=== PATIENT | male | born 1960 | race African-American/Black ===

== ENCOUNTER 2023-08-15 09:32 | Inpatient (IN) | payer OTHER, SELFPAY ==
[2023-08-15] VITALS (26 sets, daily range): BP systolic 145–178; BP diastolic 78–106; PULSE 77–100; RESP 16–24; TEMP 36.3–36.6; O2SAT 89–100
--- NOTE | ~2023-08-15 | XR_ITS ---
EXAMINATION: XR chest 1V portable DATE: 08/15/2023 11:45 INDICATION: Shortness of breath. TECHNIQUE: A single frontal view of the chest was obtained. COMPARISON: None. FINDINGS: There is no pneumonia, pleural effusion, or pneumothorax. The heart size is normal. IMPRESSION: 1. No acute cardiopulmonary disease. Reviewed, dictated and finalized at location A. [facility]
--- NOTE | 2023-08-15 10:09 | ECG_ITS ---
Measurements Intervals Omer Rate: 86 P: 64 ND: 168 QRS: 59 QRSD: 80 T: 68 QT: 384 QTc: 461 Interpretive Statements SINUS RHYTHM ST DEVIATION AND MODERATE T-WAVE ABNORMALITY, CONSIDER LATERAL ISCHEMIA [-0.1+ mV T- WAVE IN I/aVL/V5/V6] NO PREVIOUS ECG AVAILABLE FOR COMPARISON Electronically Signed On 08-15-2023 12:44:15 BREAKER UP MACHINE OPERATOR by Yahaira Shelley M.D.
--- NOTE | 2023-08-15 10:16 | ED.SOB ---
HPI - SOB/Dyspnea General Chief Complaint: Shortness of Breath/Dyspnea <Briana Gilliland PA-C - Last Filed: 08/15/23 14:33> Stated Complaint: dyspnea, wheezing <Briana Gilliland PA-C - Last Filed: 08/15/23 14:33> Time Seen by Provider: 08/15/23 10:08 <BRENNON Patel Last Filed: 08/15/23 14:33> Source: patient <BRENNON Patel Last Filed: 08/15/23 14:33> Mode of arrival: EMS <BRENNON Patel Last Filed: 08/15/23 14:33> Limitations: no limitations <Briana Gilliland PA-C - Last Filed: 08/15/23 14:33> History of Present Illness HPI Narrative: Patient is a 63 y/o male who presents to the ED via EMS with report of SOB. Patient reports he began feeling increasingly short of breath with wheezing last night. Has history of asthma. He was using his albuterol inhaler last night with mild improvement. He went to work this morning and states the shortness breath became worse. He tried using his inhaler again without relief. EMS was then called. Patient was noted to be hypoxic at 87% on room air upon EMS his arrival. He was placed on 2 L nasal cannula, given Solu-Medrol and breathing treatment EN route to the ED. Patient feeling slightly better upon my evaluation. He denies previous oxygen requirement. He denies chest pain, but does admit to chest tightness last night. Denies recent cough or cold symptoms, fevers, nausea, vomiting. <Briana Gilliland PA-C - Last Filed: 08/15/23 14:33> Related Data Home Medications: Home Medications Medication Instructions Recorded Confirmed albuterol sulfate 90 mcg/actuation 2 puff inhalation QID PRN sob 08/15/23 08/15/23 aerosol inhaler amlodipine 10 mg tablet 10 mg PO DAILY 08/15/23 08/15/23 baclofen 10 mg tablet 10 mg PO DAILY 08/15/23 08/15/23 ibuprofen 800 mg tablet 800 mg PO DAILY 08/15/23 08/15/23 <Briana Gilliland PA-C - Last Filed: 08/15/23 14:33> Allergies/Adverse Reactions: Allergies Allergy/AdvReac Type Severity Reaction Status Date / Time No Known Allergies Allergy Verified 08/15/23 10:29 <Briana Gilliland PA-C - Last Filed: 08/15/23 14:33> Review of Systems Review of Systems: CONSTITUTIONAL: Denies fever, chills, or sweats. ENT: Denies rhinorrhea, congestion, sore throat. CARDIOVASCULAR: See HPI. RESPIRATORY: See HPI. GASTROINTESTINAL: Denies abdominal pain, nausea, vomiting. NEUROLOGIC: Denies headache, dizziness, numbness, or weakness. <Briana Gilliland PA-C - Last Filed: 08/15/23 14:33> All systems reviewed & are unremarkable except as noted in HPI and below <Briana Gilliland PA-C - Last Filed: 08/15/23 14:33> [facility] Past Medical History Medical History: Medical History (Updated 08/15/23 @ 15:43 by Maegan Peterson PA-C) Asthma Hypertension Osteoarthritis <Briana Gilliland PA-C - Last Filed: 08/15/23 14:33> Social History Social History: Social History (Updated 08/15/23 @ 15:42 by Maegan Peterson PA-C) Social History: Surrogate medical decision maker: Cammie Mooney, sibling. Code status: Full code. Smoking packs per day: 1 Smoking cigarettes per day: 20.0 Years smoked: 30 Smoking pack-years: 30.00 Smoking status: Former smoker Alcohol intake: current Drinks per week: 2 Substance use: never Substance use type: does not use Do You Feel Safe in your Home?: Yes Lack of Transportation: No Lack of Food: Never True Current Housing: I Do Not Have Housing Concerned About Future Housing: No Difficulty Paying Gas/Electric Bills: No Difficulty Paying for Meds: YES Currently Unemployed: No Education: High School Diploma/GED Difficulty w/ Childcare or Family Care: No Additional occupation/education comments: [employer]. Spiritual care concerns: No <Briana Gilliland PA-C - Last Filed: 08/15/23 14:33> Exam Narrative: GENERAL: Well appearing,
[2023-08-15 10:31] LABS: Basophils Percent Auto 0.3 % (0.2-1.2); Eosinophils Absolute Auto 0.4 K/mm3 (0-0.3); Eosinophils Percent Auto 4.5 % (0-4.4); Hematocrit 36.9 % (42.0-52.0); Hemoglobin 11.6 g/dL (14.0-18.0); Immature Granulocyte Absolute 0.02 K/mm3 (0.00-0.031); Immature Granulocyte Percent A 0.2 % (0-0.5); Lymphocytes Absolute Auto 0.65 K/mm3 (0.9-3.2); Lymphocytes Percent Auto 7.6 % (18.3-44.2); Mean Corpuscular HGB Conc 31.4 g/dl (32-36); Mean Corpuscular Hemoglobin 26.1 pg (26-34); Mean Corpuscular Volume 82.9 fl (80-100); Mean Platelet Volume 8.5 fl (7.4-10.4); Monocytes Absolute Auto 0.4 K/mm3 (0.1-0.6); Monocytes Percent Auto 5.1 % (2.6-8.5); Neutrophils Absolute Auto 7.1 K/mm3 (1.3-6.7); Neutrophils Percent Auto 82.3 % (45.5-73.1); Platelet Count Result 279 k/mm3 (150-375); Red Blood Count 4.45 M/mm3 (4.6-6.20); White Blood Count 8.6 K/mm3 (4.5-10.0)
[2023-08-15] MEDS: IPRATROPIUM BR 0.02% INH SOLN 0.5 MG/2.5 ML VIAL 1.5 MG INHALATION (10:31)
[2023-08-15] MEDS: LEVALBUTEROL NEB 1.25 MG/3 ML 2.5 MG INHALATION (10:32)
[2023-08-15 10:37] LABS: Alanine Aminotransferase 16 U/L (6-50); Albumin Level 4.6 g/dL (3.5-5.1); Alkaline Phosphatase 107 U/L (38-126); Anion Gap 10 mmol/L (8-16); Aspartate Amino Transferase 25 U/L (17-59); Bilirubin,Total 0.7 mg/dL (0.2-1.3); Blood Urea Nitrogen 13 mg/dL (9-20); Calcium 9.9 mg/dL (8.4-10.2); Carbon Dioxide 24 mmol/L (22-30); Chloride 105 mmol/L (98-107); Estimated CRCL calculation 68 ml/min; Estimated Glomerular Filt Rate > 60; Glucose 135 mg/dL (65-110); Sodium 139 mmol/L (137-145)
[2023-08-15 10:48] LABS: NT Pro B Type Natriuretic Pept 217 pg/mL (19.9-100); Prothrombin Time 13.8 Seconds (11.1-14.7); Troponin I < 0.012 ng/mL (0.000-0.034)
[2023-08-15 10:49] LABS: Partial Thromboplastin Time 32.7 SECONDS (22.3-36.8)
[2023-08-15] MEDS: POTASSIUM CHLORIDE 20 MEQ ER TABLET 40 MEQ PO (10:54)
[2023-08-15] MEDS: KCL 20 MEQ/SW 100 ML 100 ML 50 MEQ IVPB (10:54)
[2023-08-15 10:55] LABS: D Dimer 0.54 ug/mL (<0.48)
[2023-08-15 11:04] LABS: Influenza A QL RT-PCR Negative (Negative); Influenza B QL RT-PCR Negative (Negative); RSV RNA, RT-PCR Negative (Negative); SARS-CoV-2 RNA PCR Negative (Negative)
[2023-08-15] MEDS: SODIUM CHLORIDE 0.9% IV 250 ML 50 ML (12:27)
[2023-08-15] MEDS: LEVALBUTEROL NEB 1.25 MG/3 ML 0.63 MG INHALATION ×2 (14:55→20:57)
[2023-08-15] MEDS: IPRATROPIUM BR 0.02% INH SOLN 0.5 MG/2.5 ML VIAL INHALATION ×2 (14:55→20:57)
--- NOTE | 2023-08-15 15:37 | PM.IMHP ---
H&P: HPI History of Present Illness Date/Time: 08/15/23 15:00 Chief Complaint: Shortness of breath. Narrative: This is a 63-year-old male with asthma, hypertension, and arthritis who presented to the emergency department via EMS for evaluation of shortness of breath. The patient provides the following history. He began to feel increasingly short of breath with wheezing sometime last night and he used his albuterol inhaler with mild improvement. This morning he went to work where he works at the [employer] and reports that there is always dirt and dust flying but he typically wears a mask. While at work became increasingly wheezy and short of breath and felt as though he could not breathe in or out very well. He has a bit of a cough which is rarely productive of clear/white phlegm. Albuterol inhaler provided no relief this time an EMS was summoned. On their arrival his SpO2 was 87% on room air; he was placed on 2 L nasal cannula and received IV methylprednisolone and a nebulizer treatment en route. At the time my evaluation he is feeling only a little bit better and is due to have a continuous nebulizer treatment. He denies fever, chills, sweats, headache, neck ache, sinus congestion, sore throat, chest pain, pleuritic pain, palpitations, lower extremity edema, and calf pain. Several coworkers have had cold or flu symptoms. In the ED: He was afebrile on arrival with stable vital signs. He continues to require 2 L nasal cannula to maintain his SpO2 in the mid upper 90s. He tested negative for influenza, RSV, and COVID. Chest x-ray showed no acute cardiopulmonary disease. Labs were significant for a WBC count of 8.6, hemoglobin 11.6, D-dimer 0.54 (normal when adjusted for age), potassium 3.0, glucose 135, proBNP 217, troponin less than 0.012. He received another nebulizer treatment in the ED and 40 mEq p.o. potassium chloride and he is being admitted for further treatment of asthma exacerbation. Review of Systems Review of Systems: Twelve systems were reviewed and are negative except for as per HPI. [facility] Past Medical History Medical History (Updated 08/15/23 @ 21:58 by Maegan Peterson PA-C) Asthma Hypertension Osteoarthritis Prostate cancer Status post radiation. Surgical History Surgical History (Updated 08/15/23 @ 21:58 by Maegan Peterson PA-C) No history of previous surgery Family History Family History (Updated 08/15/23 @ 21:58 by Maegan Peterson PA-C) Other Family history non-contributory Social History Social History (Updated 08/15/23 @ 21:58 by Maegan Peterson PA-C) Social History: Surrogate medical decision maker: Sukumar Mooney Jr., son. Code status: Full code. Smoking packs per day: 1 Smoking cigarettes per day: 20.0 Years smoked: 30 Smoking pack-years: 30.00 Smoking status: Former smoker Alcohol intake: current Drinks per week: 2 Substance use: never Substance use type: does not use Do You Feel Safe in your Home?: Yes Lack of Transportation: No Lack of Food: Never True Current Housing: I Do Not Have Housing Concerned About Future Housing: No Difficulty Paying Gas/Electric Bills: No Difficulty Paying for Meds: YES Currently Unemployed: No Education: High School Diploma/GED Difficulty w/ Childcare or Family Care: No Additional occupation/education comments: [employer]. Spiritual care concerns: No Meds Home Medications and Allergies Home Medications Medication Instructions Recorded Confirmed Type albuterol sulfate 90 mcg/actuation 2 puff inhalation QID PRN sob 08/15/23 08/15/23 History aerosol inhaler amlodipine 10 mg tablet 10 mg PO DAILY 08/15/23 08/15/23 History baclofen 10 mg tablet 10 mg PO DAILY 08/15/23 08/15/23 History ibuprofen 800 mg tablet 800 mg PO DAILY 08/15/23 08/15/23 History Allergies Allergy/AdvReac Type Severity Reaction Status Date / Time No Known Allergies Allergy Verified 08/15/23 10:29 Vit
--- NOTE | 2023-08-15 16:12 | ADMGEN ---
This patient, Sukumar Mooney, was admitted to 3 [facility] Surg Room 307-01. Patient/family oriented to hospital policies and general routines including ID bracelet, bed and alarms, visiting hours, pain management, procedures, bathroom and other care routines, personal items, smoking policy, room service/diet, and visiting hours. Information on how to activate the Rapid Response Team has been discussed. Patient/Family are encouraged to report perceived risks to care and to ask questions if they do not understand what they are told or what they should do.
[2023-08-15] MEDS: IPRATROPIUM 0.5 MG/ALBUTEROL SULFATE 2.5 MG AMPUL.NEB 3 ML INHALATION ×3 (18:37→19:29)
[2023-08-15] MEDS: methylPREDNISolone SOD SUCC 125 MG VIAL 60 MG IV PUSH (19:48)
[2023-08-15] MEDS: MAGNESIUM SULF 2 GM/WATER 50ML 2 GM/50 ML BAG IVPB (19:48)
[2023-08-15 20:10] LABS: Potassium 3.4 mmol/L (3.4-5.0)
[2023-08-15 22:18] LABS: Alveolar/Arterial O2 Gradient 88.1 mmHg; Carboxyhemoglobin 0.3 % THb (0-2.0); Fractional Inspired Oxygen 28 %; HCO3 ABG 21.1 mEq/l (22.0-26.0); Methemoglobin ABG 0.3 %THb (0-1.5); Oxygen Content ABG 15.7 %vol (16.0-22.0); Oxygen Saturation ABG 94.5 % (95.0-100.0); Oxyhemoglobin 92.9 % THb (90.0-100.0); PCO2 ABG 34.4 mmHg (35.0-45.0); PO2 FiO2 Ratio Arterial Blood 2.54 %; Reduced Hemoglobin 6.5 %THb (0-5.0); pH ABG 7.405 (7.350-7.450)
[2023-08-15 22:19] LABS: Device NASAL CANNULA; Modified Allen's Test Pass; Site Drawn LEFT RADIAL
[2023-08-16] VITALS (20 sets, daily range): BP systolic 159–165; BP diastolic 80–90; PULSE 74–94; RESP 13–22; TEMP 36.2–36.4; O2SAT 92–100
[2023-08-16] MEDS: IPRATROPIUM BR 0.02% INH SOLN 0.5 MG/2.5 ML VIAL INHALATION ×6 (00:11→21:29)
[2023-08-16] MEDS: LEVALBUTEROL NEB 1.25 MG/3 ML 0.63 MG INHALATION ×6 (00:12→21:29)
[2023-08-16] MEDS: methylPREDNISolone SOD SUCC 125 MG VIAL 60 MG IV PUSH ×4 (00:25→17:44)
[2023-08-16] MEDS: AZITHROMYCIN 250 MG TABLET 500 MG PO (00:25)
[2023-08-16 07:10] LABS: Anion Gap 9 mmol/L (8-16); Blood Urea Nitrogen 19 mg/dL (9-20); Calcium 9.4 mg/dL (8.4-10.2); Carbon Dioxide 22 mmol/L (22-30); Chloride 107 mmol/L (98-107); Estimated CRCL calculation 76 ml/min; Estimated Glomerular Filt Rate > 60; Glucose 155 mg/dL (65-110); Magnesium 2.7 mg/dL (1.6-2.3); Potassium 3.5 mmol/L (3.4-5.0); Sodium 138 mmol/L (137-145)
[2023-08-16] MEDS: IBUPROFEN 400 MG TABLET 800 MG PO (08:22)
[2023-08-16] MEDS: amLODIPine BESYLATE 5 MG TABLET 10 MG PO (08:22)
[2023-08-16] MEDS: BACLOFEN 10 MG TABLET PO (08:22)
[2023-08-16] MEDS: guaiFENesin 12 HR 600 MG TABCR PO ×2 (08:22→20:47)
[2023-08-16] MEDS: ENOXAPARIN 40 MG/0.4 ML SYRINGE SUB-Q (08:22)
[2023-08-16] MEDS: AZITHROMYCIN 250 MG TABLET PO (08:23)
--- NOTE | 2023-08-16 14:33 | PM.IMPN ---
Progress Note: A&P Assessment and Plan (1) Asthma exacerbation: Qualifiers: Asthma persistence: unspecified Asthma severity: unspecified severity Qualified Code(s): J45.901 - Unspecified asthma with (acute) exacerbation Code(s): J45.901 - Unspecified asthma with (acute) exacerbation Status: Acute Assessment and Plan: Preliminary workup is consistent with asthma exacerbation. D-dimer slightly elevated but is within normal limits with age adjustment and pulmonary embolism just seems unlikely by his history. He has been started on scheduled bronchodilators and IV steroids. Pneumonia seems unlikely however with productive cough, increased shortness of breath, and wheezing he has been started on azithromycin. Wean oxygen as tolerated. (2) Hypoxia: Code(s): R09.02 - Hypoxemia Status: Acute Assessment and Plan: Patient requiring 3 L nasal cannula at this time. Continue bronchodilators and IV steroids. Wean oxygen to maintain O2 saturation greater than 90%. (3) Hypokalemia: Code(s): E87.6 - Hypokalemia Status: Acute Assessment and Plan: Patient with potassium of 3 on presentation. Potassium replenish. Resolved (4) Hypertension: Code(s): I10 - Essential (primary) hypertension Status: Acute Assessment and Plan: continue medications. Subjective Date/time seen: 08/16/23 14:33 Interval history: patient continues to have shortness of breath with activity and at rest. He is able to talk in complete sentences. He states that he was using his albuterol inhaler more frequently prior to presentation. He does work in a reg environment in due to weather changes outside it likely cause patients asthma exacerbation. Exam Narrative: GENERAL: Comfortable, no acute distress HENMT: moist mucous membranes EYES: EOM intact b/l NECK: no lymphadenopathy RESPIRATORY: diffuse wheezing and bibasilar crackles CARDIO: RRR GI: soft, nontender, bowel sounds present SKIN: no rashes EXTREMITIES: no edema, redness or tenderness Objective Data Vital Signs Vital Signs: Vital Signs - 24 hr 08/15/23 14:56 08/15/23 14:57 08/15/23 15:08 Temperature Pulse Rate 83 80 Respiratory Rate 20 20 Blood Pressure Pulse Oximetry 95 Oxygen Delivery Nasal Cannula Oxygen Flow Rate 2 08/15/23 15:29 08/15/23 16:32 08/15/23 18:38 Temperature 97.4 F L Pulse Rate 83 100 Respiratory Rate 22 H 24 H 24 H Blood Pressure 159/86 H Pulse Oximetry 97 97 Oxygen Delivery Nasal Cannula Oxygen Flow Rate 2 08/15/23 18:50 08/15/23 19:05 08/15/23 19:15 Temperature Pulse Rate 92 91 94 Respiratory Rate 20 24 H 24 H Blood Pressure Pulse Oximetry Oxygen Delivery Oxygen Flow Rate 08/15/23 19:29 08/15/23 19:31 08/15/23 19:44 Temperature Pulse Rate 95 89 Respiratory Rate 23 H 23 H Blood Pressure Pulse Oximetry 94 Oxygen Delivery Nasal Cannula Oxygen Flow Rate 2 08/15/23 21:12 08/15/23 22:26 08/15/23 20:00 Temperature 97.9 F Pulse Rate 91 Respiratory Rate 19 Blood Pressure 156/78 H Pulse Oximetry 100 97 97 Oxygen Delivery Nasal Cannula Nasal Cannula Oxygen Flow Rate 4 4 08/16/23 00:13 08/16/23 00:30 08/16/23 04:21 Temperature Pulse Rate 80 83 83 Respiratory Rate 21 H 21 H 20 Blood Pressure Pulse Oximetry Oxygen Delivery Oxygen Flow Rate 08/16/23 04:29 08/16/23 06:00 08/16/23 09:00 Temperature 97.5 F L Pulse Rate 81 85 76 Respiratory Rate 20 13 22 H Blood Pressure 165/80 H Pulse Oximetry 95 Oxygen Delivery Oxygen Flow Rate 08/16/23 08:50 08/16/23 09:01 08/16/23 09:12 Temperature Pulse Rate 84 Respiratory Rate 20 Blood Pressure Pulse Oximetry 98 96 Oxygen Delivery Nasal Cannula Nasal Cannula Oxygen Flow Rate 4 3 08/16/23 10:13 08/16/23 08:00 08/16/23 13:30 Temperature
[2023-08-17] VITALS (19 sets, daily range): BP systolic 155–176; BP diastolic 86–100; PULSE 80–101; RESP 16–22; TEMP 36.2–36.9; O2SAT 94–100
[2023-08-17] MEDS: methylPREDNISolone SOD SUCC 125 MG VIAL 60 MG IV PUSH ×5 (00:18→23:07)
[2023-08-17] MEDS: LEVALBUTEROL NEB 1.25 MG/3 ML 0.63 MG INHALATION ×6 (01:57→20:05)
[2023-08-17] MEDS: IPRATROPIUM BR 0.02% INH SOLN 0.5 MG/2.5 ML VIAL INHALATION ×6 (01:58→20:05)
[2023-08-17 06:39] LABS: Hemoglobin 11.1 g/dL (14.0-18.0); Mean Corpuscular HGB Conc 31.7 g/dl (32-36); Mean Corpuscular Hemoglobin 26.4 pg (26-34); Mean Corpuscular Volume 83.3 fl (80-100); Platelet Count Result 307 k/mm3 (150-375); Red Cell Distribution Width 14.1 % (11.5-14.5); White Blood Count 16.9 K/mm3 (4.5-10.0)
[2023-08-17 06:54] LABS: Alanine Aminotransferase 17 U/L (6-50); Albumin Level 4.3 g/dL (3.5-5.1); Alkaline Phosphatase 90 U/L (38-126); Anion Gap 8 mmol/L (8-16); Aspartate Amino Transferase 23 U/L (17-59); Bilirubin,Total 0.4 mg/dL (0.2-1.3); Blood Urea Nitrogen 27 mg/dL (9-20); Calcium 9.4 mg/dL (8.4-10.2); Carbon Dioxide 24 mmol/L (22-30); Chloride 106 mmol/L (98-107); Estimated CRCL calculation 68 ml/min; Estimated Glomerular Filt Rate > 60; Glucose 149 mg/dL (65-110); Potassium 3.8 mmol/L (3.4-5.0); Sodium 138 mmol/L (137-145)
[2023-08-17] MEDS: BACLOFEN 10 MG TABLET PO (09:03)
[2023-08-17] MEDS: amLODIPine BESYLATE 5 MG TABLET 10 MG PO (09:04)
[2023-08-17] MEDS: IBUPROFEN 400 MG TABLET 800 MG PO (09:05)
[2023-08-17] MEDS: guaiFENesin 12 HR 600 MG TABCR PO ×2 (09:05→21:00)
[2023-08-17] MEDS: AZITHROMYCIN 250 MG TABLET PO (09:05)
[2023-08-17] MEDS: ENOXAPARIN 40 MG/0.4 ML SYRINGE SUB-Q (09:06)
--- NOTE | 2023-08-17 14:03 | PM.IMPN ---
Progress Note: A&P Assessment and Plan (1) Asthma exacerbation: Qualifiers: Asthma persistence: unspecified Asthma severity: unspecified severity Qualified Code(s): J45.901 - Unspecified asthma with (acute) exacerbation Code(s): J45.901 - Unspecified asthma with (acute) exacerbation Status: Acute Assessment and Plan: Preliminary workup is consistent with asthma exacerbation. D-dimer slightly elevated but is within normal limits with age adjustment and pulmonary embolism just seems unlikely by his history. He has been started on scheduled bronchodilators and IV steroids. Pneumonia seems unlikely however with productive cough, increased shortness of breath, and wheezing he has been started on azithromycin. Wean oxygen as tolerated. White blood cell count jumped up likely due to IV steroids. Consider decelerating steroids tomorrow. (2) Hypoxia: Code(s): R09.02 - Hypoxemia Status: Acute Assessment and Plan: Patient requiring 3 L nasal cannula at this time. Continue bronchodilators and IV steroids. Wean oxygen to maintain O2 saturation greater than 90%. (3) Hypokalemia: Code(s): E87.6 - Hypokalemia Status: Acute Assessment and Plan: Patient with potassium of 3 on presentation. Potassium replenish. Resolved (4) Hypertension: Code(s): I10 - Essential (primary) hypertension Status: Acute Assessment and Plan: continue medications. Subjective Date/time seen: 08/17/23 14:03 Interval history: Patient feeling better today. He states that he still short of breath the breathing treatments are really helping him. His lung sounds are 50% improved. he is having productive cough that is producing clear sputum. He continues to have wheezes but again breath sounds are much improved. Continue current treatment and re-evaluate tomorrow Exam Narrative: GENERAL: Comfortable, no acute distress HENMT: moist mucous membranes EYES: EOM intact b/l NECK: no lymphadenopathy RESPIRATORY: diffuse wheezing and bibasilar crackles - improved. CARDIO: RRR GI: soft, nontender, bowel sounds present SKIN: no rashes EXTREMITIES: no edema, redness or tenderness Objective Data Vital Signs Vital Signs: Vital Signs - 24 hr 08/16/23 16:12 08/16/23 16:22 08/16/23 20:00 Temperature Pulse Rate 74 82 82 Respiratory Rate 20 20 20 Blood Pressure Pulse Oximetry 100 Oxygen Delivery Nasal Cannula Oxygen Flow Rate 3 Fraction of Inspired Oxygen 08/16/23 21:29 08/16/23 21:29 08/16/23 21:37 Temperature Pulse Rate 94 94 86 Respiratory Rate 22 H 22 H 22 H Blood Pressure Pulse Oximetry 92 Oxygen Delivery Nasal Cannula Oxygen Flow Rate 3 Fraction of Inspired Oxygen 32 08/16/23 22:00 08/17/23 01:58 08/17/23 02:03 Temperature 97.3 F L Pulse Rate 86 86 82 Respiratory Rate 22 H Blood Pressure 161/90 H Pulse Oximetry 98 Oxygen Delivery Oxygen Flow Rate Fraction of Inspired Oxygen 08/17/23 06:00 08/17/23 06:12 08/17/23 07:00 Temperature 98.4 F Pulse Rate 84 80 83 Respiratory Rate 22 H 18 Blood Pressure 167/100 H Pulse Oximetry 100 95 Oxygen Delivery Nasal Cannula Oxygen Flow Rate 2 Fraction of Inspired Oxygen 08/17/23 07:00 08/17/23 07:10 08/17/23 08:00 Temperature Pulse Rate 83 84 86 Respiratory Rate 18 20 18 Blood Pressure 155/86 H Pulse Oximetry 94 Oxygen Delivery Oxygen Flow Rate Fraction of Inspired Oxygen 08/17/23 08:00 08/17/23 11:00 08/17/23 11:10 Temperature Pulse Rate 82 84 Respiratory Rate 18 20 Blood Pressure Pulse Oximetry 94 Oxygen Delivery Nasal Cannula Oxygen Flow Rate 3 Fraction of Inspired Oxygen Intake/Output Intake/Output: Intake & Output 08/14/23 08/15/23 08/16/23 08/17/23 23:59 23:59 23:59 23:59 Intake Total 1690 1720 1272 Balance 1690 1720 1272
[2023-08-18] VITALS (16 sets, daily range): BP systolic 155–173; BP diastolic 79–90; PULSE 80–103; RESP 16–24; TEMP 36.8–37.4; O2SAT 92–98
[2023-08-18] MEDS: IPRATROPIUM BR 0.02% INH SOLN 0.5 MG/2.5 ML VIAL INHALATION ×5 (02:30→19:46)
[2023-08-18] MEDS: LEVALBUTEROL NEB 1.25 MG/3 ML 0.63 MG INHALATION ×5 (02:30→19:47)
--- NOTE | 2023-08-18 05:21 | PC.NURSE ---
Spoke with Dr. Suazo at this time r/t patient having consistently elevated BP's. Dr. Suazo states she will start him on lisinopril daily, to start this morning with his morning medications.
[2023-08-18] MEDS: lisinopriL 20 MG TABLET PO (05:40)
[2023-08-18] MEDS: methylPREDNISolone SOD SUCC 125 MG VIAL 60 MG IV PUSH ×3 (05:40→20:23)
[2023-08-18 06:11] LABS: Hematocrit 34.4 % (42.0-52.0); Mean Corpuscular Hemoglobin 26.5 pg (26-34); Mean Corpuscular Volume 82.9 fl (80-100); Mean Platelet Volume 8.6 fl (7.4-10.4); Platelet Count Result 300 k/mm3 (150-375); Red Blood Count 4.15 M/mm3 (4.6-6.20); Red Cell Distribution Width 14.1 % (11.5-14.5); White Blood Count 15.6 K/mm3 (4.5-10.0)
[2023-08-18 06:31] LABS: Anion Gap 6 mmol/L (8-16); Blood Urea Nitrogen 20 mg/dL (9-20); Carbon Dioxide 26 mmol/L (22-30); Chloride 106 mmol/L (98-107); Estimated CRCL calculation 76 ml/min; Estimated Glomerular Filt Rate > 60; Glucose 140 mg/dL (65-110); Potassium 3.6 mmol/L (3.4-5.0); Sodium 138 mmol/L (137-145)
[2023-08-18] MEDS: amLODIPine BESYLATE 5 MG TABLET 10 MG PO (08:48)
[2023-08-18] MEDS: IBUPROFEN 400 MG TABLET 800 MG PO (08:48)
[2023-08-18] MEDS: BACLOFEN 10 MG TABLET PO (08:48)
[2023-08-18] MEDS: AZITHROMYCIN 250 MG TABLET PO (08:48)
[2023-08-18] MEDS: guaiFENesin 12 HR 600 MG TABCR PO ×2 (08:48→20:23)
[2023-08-18] MEDS: ENOXAPARIN 40 MG/0.4 ML SYRINGE SUB-Q (08:49)
--- NOTE | 2023-08-18 14:48 | PM.IMPN ---
Progress Note: A&P Assessment and Plan (1) Asthma exacerbation: Qualifiers: Asthma persistence: unspecified Asthma severity: unspecified severity Qualified Code(s): J45.901 - Unspecified asthma with (acute) exacerbation Code(s): J45.901 - Unspecified asthma with (acute) exacerbation Status: Acute Assessment and Plan: Preliminary workup is consistent with asthma exacerbation. D-dimer slightly elevated but is within normal limits with age adjustment and pulmonary embolism just seems unlikely by his history. He has been started on scheduled bronchodilators and IV steroids. Pneumonia seems unlikely however with productive cough, increased shortness of breath, and wheezing he has been started on azithromycin. Wean oxygen as tolerated. White blood cell count jumped up likely due to IV steroids. Decelerate IV steroids to b.i.d... (2) Hypoxia: Code(s): R09.02 - Hypoxemia Status: Acute Assessment and Plan: Patient now on room air. Continue bronchodilators and IV steroids. Maintain O2 saturation greater than 90%. (3) Hypokalemia: Code(s): E87.6 - Hypokalemia Status: Acute Assessment and Plan: Patient with potassium of 3 on presentation. Potassium replenish. Resolved (4) Hypertension: Code(s): I10 - Essential (primary) hypertension Status: Acute Assessment and Plan: continue medications. Add lisinopril 20 mg has daily Subjective Date/time seen: 08/18/23 14:48 Interval history: Patient doing well today. He is now on room air. He is to wheezing intermittently and having some mild shortness of breath with ambulation. patient also has been very hypertensive since hospital stay. Did add on some additional hypertensive medication. Plan on discharge tomorrow. Exam Narrative: GENERAL: Comfortable, no acute distress HENMT: moist mucous membranes EYES: EOM intact b/l NECK: no lymphadenopathy RESPIRATORY: mild wheezing CARDIO: RRR GI: soft, nontender, bowel sounds present SKIN: no rashes EXTREMITIES: no edema, redness or tenderness Objective Data Vital Signs Vital Signs: Vital Signs - 24 hr 08/17/23 15:00 08/17/23 15:07 08/17/23 19:00 Temperature Pulse Rate 95 90 Respiratory Rate 20 20 Blood Pressure Pulse Oximetry 97 Oxygen Delivery Nasal Cannula Oxygen Flow Rate 2 Fraction of Inspired Oxygen 08/17/23 20:05 08/17/23 20:22 08/17/23 20:20 Temperature Pulse Rate 86 86 89 Respiratory Rate 20 20 Blood Pressure Pulse Oximetry 96 Oxygen Delivery Nasal Cannula Oxygen Flow Rate 1 Fraction of Inspired Oxygen 08/17/23 21:13 08/17/23 20:00 08/18/23 02:30 Temperature 98.2 F Pulse Rate 101 H 102 H Respiratory Rate 16 22 H Blood Pressure 176/96 H Pulse Oximetry 95 95 Oxygen Delivery Nasal Cannula Oxygen Flow Rate 1.5 Fraction of Inspired Oxygen 08/18/23 02:40 08/17/23 21:05 08/18/23 05:27 Temperature 99.4 F Pulse Rate 95 91 Respiratory Rate 20 16 Blood Pressure 173/90 H Pulse Oximetry 94 98 Oxygen Delivery Room Air Oxygen Flow Rate Fraction of Inspired Oxygen 21 08/18/23 07:26 08/18/23 07:25 08/18/23 07:40 Temperature Pulse Rate 84 80 Respiratory Rate 24 H 24 H Blood Pressure Pulse Oximetry 93 Oxygen Delivery Room Air Oxygen Flow Rate Fraction of Inspired Oxygen 21 08/18/23 08:45 08/18/23 11:13 08/18/23 11:27 Temperature Pulse Rate 84 92 Respiratory Rate 22 H 22 H Blood Pressure Pulse Oximetry Oxygen Delivery Room Air Oxygen Flow Rate Fraction of Inspired Oxygen 08/18/23 14:00 Temperature 98.2 F Pulse Rate 90 Respiratory Rate 18 Blood Pressure 155/79 H Pulse Oximetry 95 Oxygen Delivery Oxygen Flow Rate Fraction of Inspired Oxygen Intake/Output Intake/Output: Intake & Output 08/15/23 08/16/23 08/17/23 08/18/23 23:59
[2023-08-19] VITALS (10 sets, daily range): BP systolic 162; BP diastolic 90; PULSE 83–112; RESP 18–20; TEMP 36.1; O2SAT 92–100
[2023-08-19] MEDS: LEVALBUTEROL NEB 1.25 MG/3 ML 0.63 MG INHALATION ×4 (01:04→11:00)
[2023-08-19] MEDS: IPRATROPIUM BR 0.02% INH SOLN 0.5 MG/2.5 ML VIAL INHALATION ×4 (01:04→11:00)
[2023-08-19] MEDS: ENOXAPARIN 40 MG/0.4 ML SYRINGE SUB-Q (08:02)
[2023-08-19] MEDS: guaiFENesin 12 HR 600 MG TABCR PO (08:03)
[2023-08-19] MEDS: IBUPROFEN 400 MG TABLET 800 MG PO (08:03)
[2023-08-19] MEDS: BACLOFEN 10 MG TABLET PO (08:04)
[2023-08-19] MEDS: amLODIPine BESYLATE 5 MG TABLET 10 MG PO (08:04)
[2023-08-19] MEDS: AZITHROMYCIN 250 MG TABLET PO (08:04)
[2023-08-19] MEDS: lisinopriL 20 MG TABLET PO (08:04)
[2023-08-19] MEDS: methylPREDNISolone SOD SUCC 125 MG VIAL 60 MG IV PUSH (08:04)
--- NOTE | 2023-08-19 12:20 | PM.IMPN ---
Subjective Date/time seen: 08/19/23 12:20 Objective Data Vital Signs Vital Signs: Vital Signs - 24 hr 08/18/23 14:00 08/18/23 16:38 08/18/23 16:47 Temperature 98.2 F Pulse Rate 90 103 H 90 Respiratory Rate 18 24 H 24 H Blood Pressure 155/79 H Pulse Oximetry 95 Oxygen Delivery Fraction of Inspired Oxygen 08/18/23 19:47 08/18/23 19:52 08/18/23 19:56 Temperature Pulse Rate 92 87 Respiratory Rate 22 H 22 H Blood Pressure Pulse Oximetry 92 Oxygen Delivery Room Air Fraction of Inspired Oxygen 21 08/18/23 20:00 08/18/23 20:51 08/19/23 01:07 Temperature 98.2 F Pulse Rate 87 112 H Respiratory Rate 16 20 Blood Pressure 161/90 H Pulse Oximetry 92 94 Oxygen Delivery Room Air Fraction of Inspired Oxygen 08/19/23 01:14 08/19/23 05:05 08/19/23 05:11 Temperature Pulse Rate 110 H 95 97 Respiratory Rate 20 20 20 Blood Pressure Pulse Oximetry Oxygen Delivery Fraction of Inspired Oxygen 08/19/23 05:04 08/19/23 07:10 08/19/23 07:10 Temperature 97 F L Pulse Rate 95 89 89 Respiratory Rate 18 18 18 Blood Pressure 162/90 H Pulse Oximetry 100 92 Oxygen Delivery Room Air Fraction of Inspired Oxygen 08/19/23 07:31 08/19/23 11:00 08/19/23 11:09 Temperature Pulse Rate 91 83 86 Respiratory Rate 20 20 20 Blood Pressure Pulse Oximetry Oxygen Delivery Fraction of Inspired Oxygen Intake/Output Intake/Output: Intake & Output 08/16/23 08/17/23 08/18/23 08/19/23 23:59 23:59 23:59 23:59 Intake Total 1720 1272 1952 300 Balance 1720 1272 1952 300 Meds/Results Medications: Active Medications Generic Name Dose Route Start Last Admin Trade Name Freq PRN Reason Stop Dose Admin Acetaminophen 650 mg 08/15/23 15:45 Acetaminophen 325 Mg Tablet PO Q6H PRN Mild Pain (1-3) or Fever Amlodipine Besylate 10 mg 08/16/23 09:00 08/19/23 08:04 Amlodipine Besylate 5 Mg Tablet PO 10 mg DAILY WANDA Administration Baclofen 10 mg 08/16/23 09:00 08/19/23 08:04 Baclofen 10 Mg Tablet PO 10 mg DAILY WANDA Administration Enoxaparin Sodium 40 mg 08/16/23 09:00 08/19/23 08:02 Enoxaparin 40 Mg/0.4 Ml Syringe SUB-Q 40 mg DAILY WANDA Administration Guaifenesin 600 mg 08/16/23 09:00 08/19/23 08:03 Guaifenesin 12 Hr 600 Mg Tabcr PO 600 mg Q12HR WANDA Administration Ibuprofen 800 mg 08/16/23 09:00 08/19/23 08:03 Ibuprofen 400 Mg Tablet PO 800 mg DAILY WANDA Administration Ipratropium Oxbow 0.5 mg 08/15/23 01:00 08/19/23 11:00 Ipratropium Br 0.02% Inh Soln 0.5 Mg/2.5 Ml Vial INHALATION 0.5 mg Q4HR WANDA Administration Levalbuterol HCl 0.63 mg 08/16/23 01:00 08/19/23 11:00 Levalbuterol Neb 1.25 Mg/3 Ml INHALATION 0.63 mg Q4HR WANDA Administration Lisinopril 20 mg 08/18/23 05:25 08/19/23 08:04 Lisinopril 20 Mg Tablet PO 20 mg QAM WANDA Administration Methylprednisolone Sodium Succinate 60 mg 08/18/23 21:00 08/19/23 08:04 Methylprednisolone Sod Succ 125 Mg Vial IV PUSH 60 mg Q12HR WANDA Administration Radiology Results: ITS Impressions Chest X-Ray 08/15/23 11:51 IMPRESSION: 1. No acute cardiopulmonary disease.
--- NOTE | 2023-08-19 12:20 | PM.DS ---
DS: Admitting Diagnosis Discharge Date 08/19/23 Admitting Diagnosis asthma exacerbation DS: Discharge Diagnosis Discharge Diagnosis (1) Asthma exacerbation: Qualifiers: Asthma persistence: unspecified Asthma severity: unspecified severity Qualified Code(s): J45.901 - Unspecified asthma with (acute) exacerbation Code(s): J45.901 - Unspecified asthma with (acute) exacerbation Status: Acute (2) Hypoxia: Code(s): R09.02 - Hypoxemia Status: Acute (3) Hypokalemia: Code(s): E87.6 - Hypokalemia Status: Acute (4) Hypertension: Code(s): I10 - Essential (primary) hypertension Status: Acute DS: Summary Hospital Course Hospital Course: this is a 63-year-old male with a past medical history of asthma, hypertension and arthritis who presented to the ED due to shortness of breath and wheezing. Patient works outside at a [employer] and also uses an albuterol inhaler home. He does have a daily inhaler. Patient was hypoxic upon presentation and required 4 L of oxygen. He had been taking his albuterol inhaler more frequently than normal. His chest x-ray showed no acute cardiopulmonary process. D-dimer was normal for adjusted age. He was hypokalemia this was replaced. Negative for influenza, RSV and COVID. Patient had diffuse wheezing upon presentation. He is admitted for asthma exacerbation treatment. Patient required IV steroids for several days as well as breathing treatments. Discussed a daily inhaler with the patient he was okay with this. Patient was able to be weaned off oxygen and is now maintaining oxygen saturation greater than 90% on room air. Will place patient on a steroid taper. Patient did have elevated white blood cell count due to steroid use. Labs and vital signs are stable and he is medically clear for discharge at this time. Time Spent with Patient Time attestation: Total time spent providing and/or coordinating discharge services: Exam Narrative: GENERAL: Comfortable, no acute distress HENMT: moist mucous membranes EYES: EOM intact b/l NECK: no lymphadenopathy RESPIRATORY: mild wheezing CARDIO: RRR GI: soft, nontender, bowel sounds present SKIN: no rashes EXTREMITIES: no edema, redness or tenderness Discharge Plan Discharge Attending physician on discharge: Chapito Zarate Consulting providers: Briana Gilliland Discharging Clinician: Ayde Eastman Patient Disposition: Home, Self-Care Activity: unlimited Diet: regular Discharge Instructions: Asthma exacerbation prevention: -Smoking cessation is pertinent -Avoid irritants such as dust or chemicals -Seek treatment when symptoms worsen -Exercising daily can help decrease breathing problems -Use pursed lip breathing. Pursed lip breathing can be used any time you feel short of breath again especially be helpful before restarting activity. Count to 2 while you take a deep breath per your nose. Slowly breathe through your mouth up with her lips slightly puckered. You should make quiet hissing sound as to breathe out. Repeat this exercise 4 to 5 times a day. Once your used to doing pursed lip breathing you can use any time you need air. -Sleep with her upper body raise if you have trouble breathing lying down and elevate your head. -Get vaccinated against COVID, flu and pneumonia. Seek immediate help if: -shortness of breath that is so severe you can talk -setting cold sweat -coughing up blood -confusion, dizziness, feeling faint Contact health provider if: -You have a fever -Difficulty doing usual activities -Increased sputum production beyond what is normal for you -Increase use of inhalers or breathing treatments -Wheezing more than normal for you -Swelling in legs or ankles Discharge disposition: Take medications as prescribed Monitor blood pressures Avoid social areas, you wear a mask when in social settings Encouraged to continue with yearly vaccin
== END 2023-08-19 13:15 | disposition home or self-care (01) | DRG 141 ==
LOC: ANHED 14:33 → ANH3MEDSUR 14:47
PROVIDERS: Physician Assistant; Admitting Provider Family Medicine; Emergency Provider Physician Assistant; Visit Provider Internal Medicine Critical Care Medicine
DX: J45.901 Unspecified asthma with (acute) exacerbation (principal); E87.6 Hypokalemia; I10 Essential (primary) hypertension; M19.90 Unspecified osteoarthritis, unspecified site; R09.02 Hypoxemia; Z20.822 Contact with and (suspected) exposure to COVID-19; Z87.891 Personal history of nicotine dependence
CPT/HCPCS: 36415; 36600; 71045; 80048; 80053; 82375; 82805; 83050; 83735; 83880; 84132; 84484; 85025; 85027; 85380; 85610; 85730; 87637; 93005; 94640; 96365; 96366; 96372; 96374; 96375; 96376; 99285; A9270; G0378; G0379; J1650; J2930; J3475; J3480; J7050

== ENCOUNTER 2023-12-13 06:52 | Observation (INO) | payer OTHER, SELFPAY ==
[2023-12-13] VITALS (34 sets, daily range): BP systolic 162–188; BP diastolic 86–102; PULSE 77–118; RESP 16–27; TEMP 35.6–36.9; O2SAT 92–100; BMI 22.4
--- NOTE | ~2023-12-13 | XR_ITS ---
Clinical Indication: Shortness of breath PA and lateral views of the chest: Comparison: 08/15/2023 Findings: The lungs are clear, without evidence of focal consolidation or pleural effusion. Cardiome diastinal silhouette is within normal limits. Bones and soft tissues are unremarkable. Impression: Normal chest. Reviewed, dictated and finalized at location . Impression: Normal chest.
--- NOTE | 2023-12-13 06:56 | ECG_ITS ---
Test Date: 2023-12-13 06:59:56 Measurements Intervals [place] Rate: 93 P: 74 WV: 150 QRS: 69 QRSD: 90 T: 81 QT: 385 QTc: 481 Interpretive Statements SINUS RHYTHM WITH OCCASIONAL ECTOPIC PREMATURE COMPLEXES NONSPECIFIC ST AND T WAVE ABNORMALITY No previous ECG available for comparison Electronically Signed On 12-13-2023 11:54:10 CDT by Orlando Jara M.D.
[2023-12-13] MEDS: ALBUTEROL SULFATE NEB 2.5 MG/3 ML INH 10 MG INHALATION ×2 (07:19→19:00)
[2023-12-13 07:20] LABS: Basophils Absolute Auto 0.1 K/mm3 (0.0-0.1); Basophils Percent Auto 0.9 % (0.2-1.2); Eosinophils Absolute Auto 0.5 K/mm3 (0-0.3); Eosinophils Percent Auto 8.9 % (0-4.4); Hematocrit 37.5 % (42.0-52.0); Hemoglobin 11.9 g/dL (14.0-18.0); Immature Granulocyte Absolute 0.02 K/mm3 (0.00-0.031); Immature Granulocyte Percent A 0.4 % (0-0.5); Lymphocytes Percent Auto 24.2 % (18.3-44.2); Mean Corpuscular HGB Conc 31.7 g/dl (32-36); Mean Corpuscular Volume 81.9 fl (80-100); Mean Platelet Volume 8.8 fl (7.4-10.4); Monocytes Absolute Auto 0.8 K/mm3 (0.1-0.6); Monocytes Percent Auto 14.3 % (2.6-8.5); Neutrophils Absolute Auto 2.8 K/mm3 (1.3-6.7); Neutrophils Percent Auto 51.3 % (45.5-73.1); Platelet Count Result 277 k/mm3 (150-375); Red Blood Count 4.58 M/mm3 (4.6-6.20); Red Cell Distribution Width 14.5 % (11.5-14.5); White Blood Count 5.4 K/mm3 (4.5-10.0)
[2023-12-13 07:36] LABS: Alanine Aminotransferase 15 U/L (6-50); Albumin Level 4.5 g/dL (3.5-5.1); Alkaline Phosphatase 83 U/L (38-126); Anion Gap 8 mmol/L (4-12); Aspartate Amino Transferase 31 U/L (17-59); Bilirubin,Total 0.6 mg/dL (0.2-1.3); Blood Urea Nitrogen 12 mg/dL (9-20); Calcium 9.5 mg/dL (8.4-10.2); Carbon Dioxide 31 mmol/L (22-30); Chloride 106 mmol/L (98-107); Estimated CRCL calculation 59 ml/min; Estimated Glomerular Filt Rate > 60; Glucose 115 mg/dL (65-110); Potassium 2.8 mmol/L (3.4-5.0); Sodium 145 mmol/L (137-145)
[2023-12-13 07:38] LABS: NT Pro B Type Natriuretic Pept 231 pg/mL (19.9-100)
--- NOTE | 2023-12-13 07:52 | ED.SOB ---
HPI - SOB/Dyspnea General Chief Complaint: Shortness of Breath/Dyspnea Stated Complaint: SOB Time Seen by Provider: 12/13/23 07:02 History of Present Illness HPI Narrative: Pt presents with SOB for several days. Pt has history of COPD but not CHF. Pt denies CP or fever. Pt says is coughing up whitish sputum. Pt says neb in route helped some. Pt also got solumedrol in route. Related Data Home Medications Medication Instructions Recorded Confirmed amlodipine 10 mg tablet 10 mg PO DAILY 08/15/23 12/13/23 ibuprofen 800 mg tablet 800 mg PO PRN PRN Pain (Scale 08/15/23 12/13/23 Score 1-3) Allergies Allergy/AdvReac Type Severity Reaction Status Date / Time No Known Allergies Allergy Verified 12/13/23 10:50 Review of Systems Review of Systems: All systems reviewed & are unremarkable except as noted in HPI and below PMFSH Past Medical History Medical History Asthma Hypertension Osteoarthritis Prostate cancer Status post radiation. Surgical History Surgical History No history of previous surgery Family History Family History Other Family history non-contributory Social History Social History Social History: Surrogate medical decision maker: Sukumar Mooney Jr., son. Code status: Full code. Smoking packs per day: 1 Smoking cigarettes per day: 20.0 Years smoked: 30 Smoking pack-years: 30.00 Smoking status: Former smoker Alcohol intake: current Drinks per week: 2 Substance use: never Substance use type: does not use Do You Feel Safe in your Home?: Yes Lack of Transportation: No Lack of Food: Never True Current Housing: I Do Not Have Housing Concerned About Future Housing: No Difficulty Paying Gas/Electric Bills: No Difficulty Paying for Meds: YES Currently Unemployed: No Education: High School Diploma/GED Difficulty w/ Childcare or Family Care: No Additional occupation/education comments: [employer]. Spiritual care concerns: No Exam Const: General: healthy appearing and no acute distress Nutritional Appearance: well nourished Orientation/consciousness: patient oriented x3 Limitations: no limitations Eyes: Conjunctivae: conjunctivae normal Pupils: Equal, round and reactive pupils present EOM: EOMs intact bilaterally Neck: Neck: normal visual inspection and no lymphadenopathy Resp: Effort & Inspection: labored Auscultation: wheezes and diminished lung sounds Cardio: Rate: regular rate Rhythm: regular rhythm GI: GI Palp: Yes Soft to palpation and No Tenderness to palpation present (GI) Auscultation: normal bowel sounds Skin: General skin exam: normal color Rashes: no rashes Wounds: no wounds Neuro: General: patient oriented x3, moves all extremities, no meningeal signs, no focal motor deficits and CN's II-XI intact bilaterally Cranial nerves: Yes Nystagmus not present Speech: normal speech Extrem: General: normal to inspection and no clubbing, cyanosis or edema Psych: Mental Status: mental status grossly normal Affect: normal affect Attitude: cooperative Course Vital Signs Vital signs: Vital Signs Pulse Rate 97 12/13/23 06:50 Respiratory Rate 25 H 12/13/23 06:50 Blood Pressure 188/102 H 12/13/23 06:50 Pulse Oximetry 94 12/13/23 06:50 Oxygen Delivery Room Air 12/13/23 06:50 Temperature 96.7 F L 12/13/23 14:00 Pulse Rate 89 12/13/23 16:00 Respiratory Rate 22 H 12/13/23 14:59 Blood Pressure 184/86 H 12/13/23 14:00 Pulse Oximetry 96 12/13/23 14:00 Oxygen Delivery Nasal Cannula 12/13/23 10:29 Oxygen Flow Rate 2 12/13/23 10:29 MDM - SOB/Dyspnea MDM Narrative Medical decision making narrative: Pt presents with worsening SOB over last few days
[2023-12-13] MEDS: POTASSIUM CHLORIDE 20 MEQ ER TABLET 40 MEQ PO (08:06)
[2023-12-13] MEDS: IPRATROPIUM 0.5 MG/ALBUTEROL SULFATE 2.5 MG AMPUL.NEB 3 ML INHALATION ×2 (08:40→14:40)
--- NOTE | 2023-12-13 10:38 | ADMGEN ---
This patient, Sukumar Mooney, was admitted to [facility] Surg Room 331-02. Patient/family oriented to hospital policies and general routines including ID bracelet, bed and alarms, visiting hours, pain management, procedures, bathroom and other care routines, personal items, smoking policy, room service/diet, and visiting hours. Information on how to activate the Rapid Response Team has been discussed. Patient/Family are encouraged to report perceived risks to care and to ask questions if they do not understand what they are told or what they should do.
--- NOTE | 2023-12-13 13:29 | PM.IMHP ---
H&P: HPI History of Present Illness Date/Time: 12/13/23 13:29 Chief Complaint: SOB Narrative: Patient is a 63-year-old pleasant male who presented to the emergency department with complaints worsening shortness of breast. Patient reported symptoms began about 3 days prior and had been unrelieved with use of his rescue inhalers at home. Patient reports a past medical history of asthma, COPD, hypertension and previous smoker. Patient states he quit smoking 3 months ago. Patient stated he was outside at a family barbecue when he became short of breath symptoms continued for the next 3 days without improvement. Patient did report he has not been taking his Singulair or Breo at home as prescribed. On initial assessment in the emergency department patient was tacked panic at 25, hypertensive with BP 188/102, and 94% room air. Patient did report he received a nebulizer treatment EN route and was feeling better upon arrival. Patient SpO2 dropped to 92% he was placed on 2 L nasal cannula, potassium was 2.8 otherwise labs unremarkable. Patient denied any chest pain, nausea, vomiting, fever, chills or any close sick contact, dizziness, diarrhea or constipation. Patient was admitted to the medical unit or likely COPD exacerbation initiated patient on DuoNebs, steroids, azithromycin, and supplemental oxygen will wean as tolerated. Review of Systems Review of Systems: All systems reviewed & are unremarkable except as noted in HPI and below PMFSH Past Medical History Medical History Asthma Hypertension Osteoarthritis Prostate cancer Status post radiation. Surgical History Surgical History No history of previous surgery Family History Family History Other Family history non-contributory Social History Social History Social History: Surrogate medical decision maker: Sukumar Mooney Jr., son. Code status: Full code. Smoking packs per day: 1 Smoking cigarettes per day: 20.0 Years smoked: 30 Smoking pack-years: 30.00 Smoking status: Former smoker Alcohol intake: current Drinks per week: 2 Substance use: never Substance use type: does not use Do You Feel Safe in your Home?: Yes Lack of Transportation: No Lack of Food: Never True Current Housing: I Do Not Have Housing Concerned About Future Housing: No Difficulty Paying Gas/Electric Bills: No Difficulty Paying for Meds: YES Currently Unemployed: No Education: High School Diploma/GED Difficulty w/ Childcare or Family Care: No Additional occupation/education comments: [employer]. Spiritual care concerns: No Meds Home Medications and Allergies Home Medications Medication Instructions Recorded Confirmed Type amlodipine 10 mg tablet 10 mg PO DAILY 08/15/23 12/13/23 History ibuprofen 800 mg tablet 800 mg PO PRN PRN Pain (Scale 08/15/23 12/13/23 History Score 1-3) fluticasone furoate 100 1 inh inhalation DAILY #60 ea 08/18/23 12/13/23 Rx mcg-vilanterol 25 mcg/dose inhalation powder (Breo Ellipta) albuterol sulfate 90 mcg/actuation 2 puff inhalation QID PRN sob #8.5 08/19/23 12/13/23 Rx aerosol inhaler grams montelukast 10 mg tablet 10 mg PO DAILY #30 tabs 08/19/23 12/13/23 Rx (Singulair) Allergies Allergy/AdvReac Type Severity Reaction Status Date / Time No Known Allergies Allergy Verified 12/13/23 10:50 Vital Signs Vital Signs - 24 hr 12/13/23 06:50 12/13/23 06:57 12/13/23 06:58 Temperature Pulse Rate 97 96 Respiratory Rate 25 H Blood Pressure 188/102 H Pulse Oximetry 94 94 Oxygen Delivery Room Air Room Air Oxygen Flow Rate 12/13/23 06:59 12/13/23 07:02 12/13/23 07:19 Temperature 98.4 F Pulse Rate 96 87 Respiratory Rate
[2023-12-13] MEDS: methylPREDNISolone SOD SUCC 125 MG VIAL 60 MG IV PUSH (14:13)
[2023-12-13] MEDS: AZITHROMYCIN 250 MG TABLET 500 MG PO (14:14)
[2023-12-13] MEDS: hydrALAZINE HCL 20 MG/ML VIAL IV PUSH (16:10)
[2023-12-13] MEDS: amLODIPine BESYLATE 10 MG TABLET PO (16:10)
[2023-12-13 16:58] LABS: Potassium 3.3 mmol/L (3.4-5.0)
[2023-12-13] MEDS: LABETALOL HCL INJ 100 MG/20 ML VIAL 20 MG IV PUSH (19:00)
[2023-12-13] MEDS: POTASSIUM CHLORIDE 20 MEQ ER TABLET PO (19:03)
[2023-12-13 20:09] LABS: Glucose Point of Care 187 mg/dl (65-105)
--- NOTE | 2023-12-13 20:14 | PDCODEBLUE ---
Code Blue Note Code Blue Note Time Arrived at Code Blue: 1909 Initial Rhythm on Arrival: Asystole at 191 Airway Management: Pt being bagged on arrival Chest Compressions: Initiated upon arrival Result of Code Blue: Pt Cardiac Rhythm Post Code: PEA Code Blue Summary: Rapid Response called at 190 for shortness of breath. Per bedside RN, patient became acutely short of breath and was sitting up tripoding. Hour long neb was in the process of being initiated. Patient then became unresponsive and a Code Blue was called at 190. Patient was being bagged upon my arrival at 1909 and compressions started at 1910. Patient is full code. Family was contacted who requested all efforts be made. Patient's labs, EKG, and imaging were reviewed. Patient received 6 doses of epi, 2 amps of bicarb, and 3 doses of atropine throughout the code. Patient had two brief episodes of bradycardia which did not respond to epinephrine or atropine lasting 2-3 minutes with last episode from 7404-4362. Patient was then intubated (see note) with confirmation via auscultation and color change via colorimetric capnography. Prior to intubation patient had profuse emesis which was suctioned and continued to have emesis post-intubation. NG tube was placed successfully. Later attempted Levophed gtt and pacing which failed to produce a rhythm. Patient remained in PEA despite all measures taken. Total code lasted from 3749-4486 when time of was called. Next of kin was notified, spoke with family at length about our efforts, and any questions were addressed. Time of at 1944, pronounced by Derek Gant MD. Critical Care Time: I personally spent 60 minutes of direct patient care including (but not limited to) the physical examination, decision-making, bedside evaluation, review of medical records, review of labs and imaging, discussion with nursing staff and other providers for collaborative, critical care management of this patient.
--- NOTE | 2023-12-13 23:52 | WPDPROCEDUR ---
Procedures Intubation Intubation Date: 12/13/23 Intubation Time: 19:27 Consent: verbal consent from family, requested all measures be taken, emergent A pre-procedural Time-Out was completed immediately before starting the procedure and confirmed: Patient Identification, Site, Procedure, Patient Position and the Availability of Requisite Equipment: No Sedative: none Laryngoscope: fiber optic video scope Assist device used: fiber optic device ET tube size: 7.5 Tube secured depth (cm): 25 Tube secured location: lips Tube placement confirmation: visualized tube passing through cords, equal breath sounds bilaterally, no breath sounds over epigastrium and confirmation by capnometry Patient tolerated procedure: well Intubation complications: other (emesis) Additional comments: Robin: Derek Gant MD
--- NOTE | 2023-12-14 13:39 | P.PNCROSS_ITS ---
Event Note Event Note Event Note: Cross Coverage (12/13/23): Bedside RN called at 1812 to address patient's subjective shortness of breath and hypertension/tachycardia - 118 and 184/96 manual. Per RN, patient here for COPD exacerbation in the setting of non- compliance with home medications. Despite scheduled DuoNebs and IV steroids patient continued to feel subjectively short of breath. No signs of outward distress, accessory muscle use, or dyspnea per bedside RN's assessment. Has been persistently tachypneic. Reviewed CXR, agree with impression - normal chest. Reviewed labs - K 3.3 post-repletion, will give additional 20 PO KCl. EKG showed sinus rhythm with occasional ectopic premature complexes and non-specific ST and T wave abnormality. Added on hour long Albuterol neb given prior improvement with same in the ED. Has been given home BP medication (Amlodipine 10 mg PO), per nurse had received 20 mg of Amlodipine in the last 24 hours and hydralazine 20 mg IVP at 16:10 with little effect. Adding Labetalol 20 mg IVP for tachycardia/HTN, hour long neb for COPD, and KCl PO for mild hypokalemia. RN to call with response to treatment.
--- NOTE | 2023-12-24 14:34 | PM.DDS ---
Discharge Summary Date and Time Date of : 12/13/23 Time of : 19:45 Provider Pronounced By: Provider Name of Provider That Pronounced: Dr. Gant Probable Cause of Probable Cause of : Acute respiratory failure Summary Hospital Course: Chief Complaint: SOB Narrative: Patient is a 63-year-old pleasant male who presented to the emergency department with complaints worsening shortness of breast. Patient reported symptoms began about 3 days prior and had been unrelieved with use of his rescue inhalers at home. Patient reports a past medical history of asthma, COPD, hypertension and previous smoker. Patient states he quit smoking 3 months ago. Patient stated he was [place] [facility] [employer] when he became short of breath symptoms continued for the next 3 days without improvement. Patient did report he has not been taking his Singulair or Breo at home as prescribed. On initial assessment in the emergency department patient was tacked panic at 25, hypertensive with BP 188/102, and 94% room air. Patient did report he received a nebulizer treatment EN route and was feeling better upon arrival. Patient SpO2 dropped to 92% he was placed on 2 L nasal cannula, potassium was 2.8 otherwise labs unremarkable. Patient denied any chest pain, nausea, vomiting, fever, chills or any close sick contact, dizziness, diarrhea or constipation. Patient was admitted to the medical unit or likely COPD exacerbation initiated patient on DuoNebs, steroids, azithromycin, and supplemental oxygen will wean as tolerated. Imaging Chest x-ray: Radiologist's impression: Findings: The lungs are clear, without evidence of focal consolidation or pleural effusion. Cardiomediastinal silhouette is within normal limits. Bones and soft tissues are unremarkable. Impression: Normal chest. WBC: 5.4 K+: 2.8 replenished 3.3 repeat EKG: SINUS RHYTHM WITH OCCASIONAL ECTOPIC PREMATURE COMPLEXES Patient reported SOB had improved after breathing treatments was resting comfortable in room Event was reported to this provider following day was not present for event and code. Per Medical chart: Time Arrived at Code Blue: 191 Initial Rhythm on Arrival: Asystole at 191 Airway Management: Pt being bagged on arrival Chest Compressions: Initiated upon arrival Result of Code Blue: Pt Cardiac Rhythm Post Code: PEA Code Blue Summary: Rapid Response called at 1907 for shortness of breath. Per bedside RN, patient became acutely short of breath and was sitting up tripoding. Hour long neb was in the process of being initiated. Patient then became unresponsive and a Code Blue was called at 190. Patient was being bagged upon my arrival at 191 and compressions started at 191. Patient is full code. Family was contacted who requested all efforts be made. Patient's labs, EKG, and imaging were reviewed. Patient received 6 doses of epi, 2 amps of bicarb, and 3 doses of atropine throughout the code. Patient had two brief episodes of bradycardia which did not respond to epinephrine or atropine lasting 2-3 minutes with last episode from 5664-3553. Patient was then intubated (see note) with confirmation via auscultation and color change via colorimetric capnography. Prior to intubation patient had profuse emesis which was suctioned and continued to have emesis post-intubation. NG tube was placed successfully. Later attempted Levophed gtt and pacing which failed to produce a rhythm. Patient remained in PEA despite all measures taken. Total code lasted from 1799-7255 when time of was called. Next of kin was notified, spoke with family at length about our efforts, and any questions were addressed. Time of at 1944, pronounced by Derek Gant MD. Additional Data Confirmation of as documented by pronouncing clinician: Pupillary Reflex, Palpable Pulses, Response to Stimuli, Heart Tones and Breath Sounds Name of Provider N
== END 2023-12-14 00:12 | disposition expired ==
LOC: ANHED 09:32 → ANH3MEDSUR 09:56
PROVIDERS: Student in an Organized Health Care Education/Training Program; Admitting Provider General Practice; Emergency Provider Emergency Medicine; Visit Provider Nurse Practitioner Family
DX: J96.01 Acute respiratory failure with hypoxia (principal); J44.1 Chronic obstructive pulmonary disease with (acute) exacerbation; E87.6 Hypokalemia; I10 Essential (primary) hypertension; Z85.46 Personal history of malignant neoplasm of prostate; Z92.3 Personal history of irradiation; Z87.891 Personal history of nicotine dependence; Z79.51 Long term (current) use of inhaled steroids
CPT/HCPCS: 31500; 36415; 71046; 80053; 82948; 83735; 83880; 84132; 85025; 93005; 94640; 96374; 96375; 99285; A9270; G0378; G0379; J0171; J0360; J0461; J2919